=== PATIENT | female | born 1980 | race American Indian/Alaskan Native ===

== ENCOUNTER 2017-11-24 18:36 | Emergency (ER) | payer MEDICAID | END 2017-11-24 19:25 | disposition left against medical advice (07) | LOC: ED 18:36 | DX: R10.30 Lower abdominal pain, unspecified (principal); Z53.21 Procedure and treatment not carried out due to patient leaving prior to being seen by health care provider ==

== ENCOUNTER 2017-11-25 10:18 | Emergency (ER) | payer OTHER, MEDICAID ==
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
[2017-11-25 16:38] VITALS: BP 107/83
[2017-11-25 17:37] LABS: HCG Qualitative,Urine Negative (Negative)
== END 2017-11-25 16:49 | disposition home or self-care (01) ==
LOC: ED 10:18
DX: S16.1XXA Strain of muscle, fascia and tendon at neck level, initial encounter (principal); S29.012A Strain of muscle and tendon of back wall of thorax, initial encounter; S33.5XXA Sprain of ligaments of lumbar spine, initial encounter; V89.2XXA Person injured in unspecified motor-vehicle accident, traffic, initial encounter; Y93.89 Activity, other specified; Y92.89 Other specified places as the place of occurrence of the external cause; Y99.8 Other external cause status
CPT/HCPCS: 72040; 72070; 72100; 81025; 99283